=== PATIENT | male | born 1960 | race Caucasian/White ===

== ENCOUNTER 2019-03-24 18:43 | Emergency (ER) | payer SELFPAY ==
[~2019-03-24] VITALS: Ht 170.2 cm; Wt 68.0 kg
[2019-03-24 18:47] VITALS: Ht 170.2 cm; Wt 68.0 kg
[2019-03-24 19:11] LABS: BASOPHIL % 0.5 % (0-2)
[2019-03-24 19:13] LABS: PLATELET COUNT 467 x10^3mcL (130-400); RED CELL DISTRIBUTION WIDTH 14.9 % (11.5-14.5)
[2019-03-24 19:17] LABS: CALCIUM 9.3 mg/dL (8.5-10.1); CARBON DIOXIDE 24.1 mmol/L (21-32); CHLORIDE SERUM 103 mmol/L (98-107); CREATININE SERUM 0.9 mg/dL (0.7-1.3); GFR1 > 60 mL/min; GLUCOSE SERUM 84 mg/dL (74-106); POTASSIUM SERUM 3.9 mmol/L (3.5-5.1); SODIUM SERUM 138 mmol/L (136-145)
[2019-03-24 19:22] LABS: ALBUMIN 3.8 g/dL (3.4-5.0); ALKALINE PHOSPHATASE 66 U/L (46-116); ALT/SGPT 23 U/L (16-63); AST/SGOT 9 U/L (15-37); BILIRUBIN TOTAL 0.34 mg/dL (0.20-1.00); TOTAL PROTEIN, SERUM 6.9 g/dL (6.4-8.2)
[2019-03-24 21:31] VITALS: BP 104/63
== END 2019-03-24 21:31 | disposition left against medical advice (07) ==
LOC: ED 18:43
DX: R07.2 Precordial pain (principal); F17.210 Nicotine dependence, cigarettes, uncomplicated; R10.13 Epigastric pain; M54.5 Low back pain
CPT/HCPCS: 36415; 99406; Q0092

== ENCOUNTER 2020-03-18 09:19 | Emergency (ER) | payer MEDICAID ==
[~2020-03-18] VITALS: Ht 165.1 cm; Wt 54.4 kg
[2020-03-18 09:20] VITALS: Ht 165.1 cm; Wt 54.4 kg
[2020-03-18 09:50] VITALS: BP 131/76
== END 2020-03-18 09:50 | disposition home or self-care (01) ==
LOC: ED 09:19
DX: M54.12 Radiculopathy, cervical region (principal)
CPT/HCPCS: J3010